=== PATIENT | male | born 1990 | race Caucasian/White ===

== ENCOUNTER 2023-11-25 08:19 | Outpatient (AMB) | payer OTHER, SELFPAY ==
--- NOTE | 2023-11-25 08:26 | MHC.OFFVIS ---
Intake Vital Signs 11/25/23 08:31 Height 5 ft 9 in Weight 253 lb BMI 37.4 BP 129/69 Blood Pressure Location Lt brachial Position Sitting Pulse 72 Intake Visit Reasons: Gastroesophageal reflux disease (GERD) Intake Note: Clayton presents in the office as a new patient for GERD. Patient cc: occasional abdominal pain with bloating, acid reflex with some burning sensation, patient have to clear his throat after eating denies any other GI issues. Gas Flow Regulator Required: No Accompanied by: Self / Same As Patient Allergies No Known Allergies Allergy (Verified 11/25/23 08:28) HPI HPI Comments History of Present Illness Details A 33 y/o male referred with for abdominal hernia-- he has gained a bit of weight- he says well contri]olled- pepcid intermittently-omeprazole has been better He notes a bulge in the abdomen when power lifting -he is very worried about having a hernia, there is no pain or other GI symptom. He wants to be evaluated before it worsens because he does do a lot of strenuous exercise. Etoh- few nights a week He smoke cigars Works from home Appetite is good Bowels are normal No respiratory or cardiac issues No nausea, vomiting, hematemesis, hematochezia, abdominal pain, fever or chills PFSH Family History Father Coronary artery abnormality Alcoholic Paternal Grandfather No problems noted. Maternal Grandmother No problems noted. Maternal Grandfather Lung tumor Maternal Uncle Abdominal tumor Social History (Updated 11/25/23 @ 08:29 by Brenda Ramirez) Household Members: Family Alcohol intake: current Alcohol intake frequency: a few times a week Tobacco use type: Cigar Substance Use Type: Marijuana Review of Systems Const All systems reviewed & are unremarkable except as noted in HPI and below Card Denies chest pain and Denies dyspnea Resp Denies dyspnea GI Reports heartburn Physical Exam Vital Signs: Last Vital Signs Pulse 72 11/25/23 08:31 BP 129/69 11/25/23 08:31 BMI result Body Mass Index 37.4 Const General: cooperative, healthy appearing, comfortable and no acute distress Orientation/consciousness: patient oriented x3 Limitations: no limitations Eyes Sclerae: sclerae normal Resp Effort & Inspection: normal respiratory effort and able to speak in complete sentences Auscultation: clear to auscultation bilaterally, no rales, no rhonchi and no wheezes Cardio Rate: regular rate Rhythm: regular rhythm Heart sounds: S1 normal heart sound present and S2 normal heart sound present GI Inspection: Yes obesity, Yes striae, No visible herniation and Yes other Palpation (GI): Soft to palpation and nontender Auscultation: normal bowel sounds Skin General skin exam: no rashes or lesions noted Neuro General: patient oriented x3 Extrem General: Yes full ROM Psych Appearance: grossly normal and well kempt Mental Status: mental status grossly normal Speech and movement: Normal speech and movement present Affect: normal affect Attitude: cooperative Thought process: Normal thought process present Thought content: Normal thought content present Insight: Good insight present (Psych) Judgement: Good judgement present (Psych) Assessment & Plan Assessment & Plan (1) Acid reflux: Comment: Very pleasant 33-year-old Gent Well-controlled with PPI noted with weight gain and after spicy food Code(s): K21.9 - Gastro-esophageal reflux disease without esophagitis Plan: Avoid weight gain dietary modifications PPI Reflux precautions (2) Abdominal hernia: Comment: Unable to appreciate hernia on exam- Note- diastasis Avoid further weight gain Referral to surgery-as there expertise will serve him well Code(s): K46.9 - Unspecified abdominal hernia without obstruction or gangrene Plan: Refer-surgical eval Plan Continue PPI prescription refill Dietary precautions, reflux precautions reviewed Refer to surgery for evaluation-for abdominal hernia Encouraged to call questions or concerns Orders: Referrals General Surgery Referral K46.9 - Unspecified abdominal hernia without obstruction or gangrene Medications: New omeprazole 20 mg PO DAILY 30 caps 5RF Coding Level of Care Code New Pt Level 3 (84028) Diagnoses Acid reflux K21.9 Abdominal hernia K46.9 Time Spent (min) 30 Comment ref surgical consult
[2023-11-25 08:31] VITALS: BP 129/69; PULSE 72; BMI 37.4
== END 2023-11-25 09:42 | disposition home or self-care (01) ==
PROVIDERS: PCP Internal Medicine; Visit Provider Physician Assistant
DX: K21.9 Gastro-esophageal reflux disease without esophagitis (principal); K46.9 Unspecified abdominal hernia without obstruction or gangrene
CPT/HCPCS: 99203

== ENCOUNTER → 2023-11-25 08:19 | Outpatient (BNVA) | payer OTHER, SELFPAY | PROVIDERS: PCP Internal Medicine; Visit Provider Physician Assistant ==

== ENCOUNTER 2023-11-30 10:38 | Outpatient (AMB) | payer OTHER, SELFPAY ==
--- NOTE | 2023-11-30 10:41 | A.OFFVIS_ITS ---
Intake Vital Signs 11/30/23 10:42 Height 5 ft 9 in Weight 260 lb BMI 38.4 BP 141/81 H Blood Pressure Location Rt brachial Position Sitting Pulse 74 Intake Visit Reasons: R/o abdominal hernia Intake Note: Patient referred by Ofelia Hawkins (GI) for abd hernia. Reports hernia 1st noticed in September. Patient c/o: bulging out. Denies pain. Linemarker Required: No Accompanied by: Self / Same As Patient Allergies No Known Allergies Allergy (Verified 11/30/23 10:47) HPI HPI Comments History of Present Illness Details Patient presents for evaluation for an upper abdominal hernia. He does significant power lifting and presents here for evaluation. He has no GI issues or complaints. Tolerating a diet. Having regular bowel habits. Chart was reviewed and patient evaluate [facility] Surgical History (Updated 11/30/23 @ 11:29 by Sabino Irwin MD) [place] teeth extracted Family History Father Coronary artery abnormality Alcoholic Paternal Grandfather No problems noted. Maternal Grandmother No problems noted. Maternal Grandfather Lung tumor Maternal Uncle Abdominal tumor Social History (Updated 11/30/23 @ 10:48 by LIZBETH Eddy) Household Members: Family Alcohol intake: current Alcohol intake frequency: a few times a week Tobacco use type: Cigar Substance Use Type: Marijuana Physical Exam Vital Signs: Last Vital Signs Pulse 74 11/30/23 10:42 BP 141/81 H 11/30/23 10:42 BMI result Body Mass Index 38.4 GI Other: Patient was evaluated both supine and standing with Valsalva. Corpulent abdomen. Supraumbilical abdominal wall diastasis. Patient has a very small umbilical hernia, less than 1 cm reducible. Bilateral groin exam negative. Genitalia within normal limits. Assessment & Plan Assessment & Plan (1) Rectus diastasis: Code(s): M62.08 - Separation of muscle (nontraumatic), other site (2) Umbilical hernia: Code(s): K42.9 - Umbilical hernia without obstruction or gangrene Plan Findings were reviewed with the patient. Because his umbilical hernia is asymptomatic and his ventral hernia is of modest size, current plan is continue conservative therapy. Should he develop any symptoms, or progression, he has been instructed to call the office will otherwise follow-up p.r.n.. All qu estions answered. Coding Level of Care Code New Pt Level 4 (22836) Diagnoses Rectus diastasis M62.08 Umbilical hernia K42.9
[2023-11-30 10:42] VITALS: BP 141/81; PULSE 74; BMI 38.4
== END 2023-11-30 10:56 | disposition home or self-care (01) ==
PROVIDERS: PCP Internal Medicine; Referring Provider Physician Assistant; Visit Provider Surgery
DX: M62.08 Separation of muscle (nontraumatic), other site (principal); K42.9 Umbilical hernia without obstruction or gangrene
CPT/HCPCS: 99204

== ENCOUNTER → 2023-11-30 10:38 | Outpatient (BNVA) | payer OTHER, SELFPAY | PROVIDERS: PCP Internal Medicine; Referring Provider Physician Assistant; Visit Provider Surgery ==

== ENCOUNTER 2024-01-04 18:41 | Emergency (ER) | payer OTHER, SELFPAY ==
[2024-01-04 19:12] VITALS: BP 143/75; PULSE 73; RESP 16; TEMP 36.6; O2SAT 98; BMI 38.8
--- NOTE | 2024-01-04 19:12 | ED.EYEPROB ---
HPI - Eye Problem General Chief complaint: General Medical Stated complaint: Lt eye irritation Time Seen by Provider: 01/04/24 20:30 Source: patient Mode of arrival: ambulatory Limitations: no limitations History of Present Illness HPI Narrative: Patient is a 33-year-old male presenting to the emergency department with complaint of discomfort and foreign body sensation to left eye. States that he was working a plastic rinsing in his yd around noon today when he was pulling it back and it hit him in the left eye. Denies any blurred vision or changes in vision. Denies any drainage or discharge. Denies any itching. Reports some photosensitivity. Called his PCP and was referred to the ED. Denies contact lens use. chief complaint: eye injury Onset (ago): hour(s) Onset description: sudden Duration: constant Location: left eye Eye Symptoms: redness, foreign body sensation and photophobia Place: home Mechanism: direct trauma Severity: mild Treatments Prior to Arrival: none Related Data Previous Rx's ?Medication ?Instructions ?Recorded omeprazole 20 mg capsule,delayed 20 mg PO DAILY #30 caps 11/25/23 release erythromycin 5 mg/gram (0.5 %) eye 1 appl ophthalmic-Left QID 5 days 01/04/24 ointment #3.5 grams Allergies Allergy/AdvReac Type Severity Reaction Status Date / Time No Known Allergies Allergy Verified 01/04/24 19:14 Review of Systems Review of Systems: As per HPI. Yes all other systems are reviewed and are negative Constitutional: Constitutional: Reports as per HPI PMF Past Medical History Surgical History (Updated 11/30/23 @ 11:29 by Sabino Irwin MD) [place] teeth extracted Family History Family History Father Coronary artery abnormality Alcoholic Paternal Grandfather No problems noted. Maternal Grandmother No problems noted. Maternal Grandfather Lung tumor Maternal Uncle Abdominal tumor Social History Social History (Updated 11/30/23 @ 10:48 by LIZBETH Eddy) Household Members: Family Alcohol intake: current Alcohol intake frequency: a few times a week Tobacco use type: Cigar Substance Use Type: Marijuana Do you have a plan to hurt others: No Plan Physical Exam Vital Signs: Vital Signs: Last Vital Signs Temp 98 F 01/04/24 19:12 Pulse 73 01/04/24 19:12 Resp 16 01/04/24 19:12 BP 143/75 H 01/04/24 19:12 Pulse Ox 98 01/04/24 19:12 O2 Del Method Room Air 01/04/24 19:12 BMI result Body Mass Index 38.8 Vital signs have been reviewed and appear to be correct. Blood pressure slightly elevated. Heart rate normal. Respiratory rate normal. Temperature normal. Oxygen saturation normal. Const: General: cooperative, healthy appearing and no acute distress Orientation/consciousness: oriented to person, oriented to place, oriented to time and patient oriented x3 Limitations: no limitations HEENT: Head: Yes normocephalic and Yes atraumatic Ears: external ears normal General nose exam: Normal external nose present Face and sinus: Yes face symmetric Mouth: oropharynx normal and moist mucous membranes Throat: Yes uvula midline Eyes: Conjunctivae: conjunctival abnormal left conjunctival injection diffuse (mild) Sclerae: sclerae normal Corneas: corneas abnormal on the left fluorescein used and abrasion punctate and at the following clock position (12:00) and fluorescein used Pupils: Equal, round and reactive pupils present EOM: EOMs intact bilaterally Neck: Neck: Yes normal visual inspection and Yes supple Resp: Effort & Inspection: normal respiratory effort and able to speak in complete sentences Auscultation: clear to auscultation bilaterally Cardio: Rate: regular rate Rhythm: regular rhythm Heart sounds: S1 normal heart sound present and S2 normal heart sound present Skin: General skin exam: elasticity normal and turgor normal Neuro: General: oriented to person, oriented to place, oriented to time, patient oriented x3, moves all extremities, no focal motor deficits and CN's II-XI intact bilaterally Cranial nerves: Yes Equal, round and reactive pupils present Cognition (Neuro): normal cognition Extrem: General: Yes full ROM, Yes no pedal edema and Yes no calf tenderness Psych: Mental Status: mental status grossly normal Affect: normal affect Thought process: Normal thought process present Course Course Course Narrative: This is an RME: Additional HPI, ROS, PE not included below will be deferred to primary provider. This is a [id number]-male, with no known medical problems, who presents to the ER with complaints of left eye irritation since today. Pt state that he struck his left eye on a fence at home. Reports decreased vision and tearing since the accident. +photophobia Plan: needs fluoroscein stain, visual acuity testing Medications Administered Discontinued Medications Generic Name Dose Route Start Last Admin Trade Name Dalton PRN Reason Stop Dose Admin Fluorescein Sodium 1 strip 01/04/24 19:13 01/04/24 20:12 Fluorescein Sodium Strip EYE-LEFT 01/04/24 19:14 1 strip ONCE ONE Administration Tetracaine HCl 1 drop 01/04/24 19:13 01/04/24 20:12 Tetracaine Hcl/Pf 0.5% Oph [place] 4 Ml Drops EYE-LEFT 01/04/24 19:14 1 drop ONCE ONE Administration Medical Decision Making Medical Decision Making [facility] Narrative: Patient is a 33-year-old male presenting to the emergency department with complaint of discomfort and foreign body sensation to left eye. On exam patient is awake, A+Ox3, VS WNL, afebrile, normal neurological exam without focal deficits, physical exam findings as above. Given reported symptoms and physical exam findings, initial differential includes corneal abrasion, foreign body. Visual acuity normal. Corneal abrasion noted at 12:00 on Acevedo lamp exam with fluorescein. Will treat with erythromycin ointment. Patient instructed to follow-up with performance tester for any ongoing symptoms. Return precautions discussed at bedside. Patient verbalized understanding of and agreement with plan. Differential Diagnosis Differential Diagnoses: The differential diagnosis associated with the presentation includes As per MDM. External Record Review External record reviewed: Inpatient record, Office record and Outpatient record Prescription Management I considered prescription management with: Antibiotic Discharge Plan Discharge Clinical Impression: Corneal abrasion, left Qualifiers: Encounter type: initial encounter Qualified Code(s): S05.02XA - Injury of conjunctiva and corneal abrasion without foreign body, left eye, initial encounter Patient Disposition: Home, Self-Care Instructions: Corneal Abrasion (DC) Additional Instructions: You were evaluated in the emergency department today for eye irritation which is due to a corneal abrasion, also known as a scratched the surface of your eye. You are being treated with erythromycin ointment, please use this as prescribed. Follow-up with your performance tester for any ongoing symptoms. Return to the emergency department if you develop increasing pain, changes in vision, severe headaches, vomiting, fever or any other concerning symptoms. Prescriptions: New erythromycin 5 mg/gram (0.5 %) ointment 1 appl ophthalmic-Left QID 5 Days Qty: 3.5 0RF No Action omeprazole 20 mg capsule,delayed release(DR/EC) 20 mg PO DAILY Qty: 30 5RF Print Language: Welsh
[2024-01-04] MEDS: Fluorescein Sodium STRIP 1 STRIP EYE-LEFT (20:12)
[2024-01-04] MEDS: Tetracaine HCl/PF 0.5% Oph Sol 4 ML DROPS 1 DROP EYE-LEFT (20:12)
--- NOTE | 2024-01-04 20:12 | PC.NURSE ---
PROVIDER TO ADMINISTER MEDS
[2024-01-04 21:09] VITALS: BP 127/73; PULSE 72; O2SAT 98
[2024-01-04 21:24] VITALS: BP 127/73; PULSE 72; RESP 16; TEMP 36.7; O2SAT 98
== END 2024-01-04 21:26 | disposition home or self-care (01) ==
PROVIDERS: Emergency Provider Internal Medicine
DX: S05.02XA Injury of conjunctiva and corneal abrasion without foreign body, left eye, initial encounter (principal); W22.8XXA Striking against or struck by other objects, initial encounter; H57.12 Ocular pain, left eye; Y93.9 Activity, unspecified; Y92.9 Unspecified place or not applicable; Y99.9 Unspecified external cause status
CPT/HCPCS: 99283; 99284